=== PATIENT | male | born 1935 | race Caucasian/White ===

== ENCOUNTER → 2017-08-21 | Outpatient (CLI) | payer OTHER ==
[~2017-08-21] MED LIST: B2; CALCAVITD PO; CINNAMON; CIPR500 PO; CYAN500 PO; FINA5 PO; FLAX PO; FOLI400 PO; GINKGO BILOBA; HYDACE5 PO; LEVFLO500 PO; LOVA40 PO; MULVITMINF PO; NAPR500 PO; Naprosyn375 MG PO; Norco 5-325 Ta1 EACH PO; OAT BRAN; OMEG1CAP30 PO; POLY500 PO; PYRI100 PO; SERT50 PO; SLO-NIACIN; SULTRIDS PO; TAMS.4ER PO
== END | disposition home or self-care (01) ==
LOC: LAB SHORT 09:30 → OLS 09:30
PROVIDERS: Urology
DX: C61 Malignant neoplasm of prostate (principal)
CPT/HCPCS: 36415; 84153

== ENCOUNTER → 2017-08-21 | Outpatient (CLI) | payer OTHER | END | disposition home or self-care (01) | LOC: PLD 14:19 → LAB SHORT 14:19 | DX: Z08 Encounter for follow-up examination after completed treatment for malignant neoplasm (principal); Z85.51 Personal history of malignant neoplasm of bladder | CPT/HCPCS: 88108 ==

== ENCOUNTER → 2018-01-01 | Outpatient (CLI) | payer OTHER | LOC: LAB SHORT 07:42 → PLD 07:42 | DX: D22.62 Melanocytic nevi of left upper limb, including shoulder (principal) | CPT/HCPCS: 88305 ==

== ENCOUNTER 2019-01-12 23:33 | Emergency (ER) | payer OTHER ==
[~2019-01-12] VITALS: Ht 180.3 cm; Wt 84.4 kg
[2019-01-13 00:18] LABS: BASOPHILS ABSOLUTE AUTO 0.03 K/mm3 (0.00-0.23); BASOPHILS PERCENT AUTO 1 % (0-2); EOSINOPHILS ABSOLUTE AUTO 0.02 K/mm3 (0.00-0.68); EOSINOPHILS PERCENT AUTO 0 % (0-6); Hematocrit 35.8 % (37.0-53.0); Hemoglobin 11.6 g/dL (13.5-17.5); IMMATURE GRAN ABSOLUTE AUTO 0.02 K/mm3 (0.00-0.10); IMMATURE GRAN PERCENT AUTO 0 % (0-1); LYMPHOCYTES ABSOLUTE AUTO 1.13 K/mm3 (0.84-5.20); LYMPHOCYTES PERCENT AUTO 24 % (21-46); MONOCYTES ABSOLUTE AUTO 0.54 K/mm3 (0.16-1.47); MONOCYTES PERCENT AUTO 12 % (4-13); Mean Corpuscular HGB 31.3 pg (26.0-34.0); Mean Corpuscular HGB Conc 32.4 g/dL (31.5-36.5); Mean Corpuscular Volume 97 fL (80-100); Mean Platelet Volume 11.6 fL (9.1-12.4); NEUTROPHILS ABSOLUTE AUTO 2.93 K/mm3 (1.96-9.15); NEUTROPHILS PERCENT AUTO 63 % (41-73); Platelet Count 140 K/mm3 (150-400); RDW Coefficient Variation 12.9 % (11.7-14.2); RDW Standard Deviation 45.8 fL (35.1-46.3); Red Blood Cell Count 3.71 M/mm3 (4.30-5.90); White Blood Cell Count 4.67 K/mm3 (4.00-11.30)
[2019-01-13 00:34] LABS: Albumin, Blood 3.3 g/dL (3.4-5.0); Albumin/Globulin Ratio 0.9 (0.8-1.8); Bilirubin, Total 0.6 mg/dL (0.1-1.0); Bun/Creatinine Ratio 15.2 (12.0-20.0); Calcium, Blood 8.6 mg/dL (8.5-10.1); Creatinine, Blood 1.25 mg/dL (0.60-1.20); Globulin, Blood 3.8 g/dL (2.2-4.0); Potassium, Blood 3.9 mmol/L (3.5-5.5); Total Protein, Blood 7.1 g/dL (6.4-8.2)
[2019-01-13 00:59] LABS: Source, Urine Clean Catch
[2019-01-13 01:01] LABS: Bilirubin, Urine Neg (Neg); Blood, Urine Neg (Neg); Glucose Qualitative, Urine Neg (Neg); Ketones, Urine Neg (Neg); Leukocyte Esterase, Urine 1+ (Neg); Nitrite, Urine Neg (Neg); Protein, Urine 2+ (Neg); Specific Gravity, Urine 1.015 (1.003-1.022); Urobilinogen, Urine NORM (Normal)
[2019-01-13 01:02] LABS: Appearance, Urine Clear (Clear); Color, Urine Amber (P-Yellow)
[2019-01-13 01:07] LABS: Amorphous Light (0-Heavy); Bacteria Few /hpf; Mucus Light (0-Heavy); Red Blood Cells, Urine Not Seen /hpf (0-2); Squamous Epithelial Cells Not Seen /hpf (Few); White Blood Cells, Urine 0-2 /hpf (0-5)
== END 2019-01-13 01:48 | disposition home or self-care (01) ==
LOC: ER 23:33
PROVIDERS: Emergency Medicine
DX: E86.0 Dehydration (principal); R19.7 Diarrhea, unspecified; R50.9 Fever, unspecified; Z79.899 Other long term (current) drug therapy; Z85.51 Personal history of malignant neoplasm of bladder
CPT/HCPCS: 36415; 71046; 80053; 81001; 83605; 83690; 83735; 83880; 84145; 84484; 85025; 93005; 93010; J7030

== ENCOUNTER 2019-03-28 18:03 | Inpatient (IN) | payer OTHER ==
[~2019-03-28] VITALS: Ht 180.3 cm; Wt 79.1 kg
[2019-03-28 18:52] LABS: BASOPHILS ABSOLUTE AUTO 0.03 K/mm3 (0.00-0.23); BASOPHILS PERCENT AUTO 0 % (0-2); EOSINOPHILS ABSOLUTE AUTO 0.13 K/mm3 (0.00-0.68); EOSINOPHILS PERCENT AUTO 2 % (0-6); Hematocrit 33.4 % (37.0-53.0); Hemoglobin 11.2 g/dL (13.5-17.5); IMMATURE GRAN ABSOLUTE AUTO 0.01 K/mm3 (0.00-0.10); IMMATURE GRAN PERCENT AUTO 0 % (0-1); LYMPHOCYTES ABSOLUTE AUTO 1.89 K/mm3 (0.84-5.20); LYMPHOCYTES PERCENT AUTO 26 % (21-46); MONOCYTES ABSOLUTE AUTO 0.67 K/mm3 (0.16-1.47); MONOCYTES PERCENT AUTO 9 % (4-13); Mean Corpuscular HGB 31.2 pg (26.0-34.0); Mean Corpuscular HGB Conc 33.5 g/dL (31.5-36.5); Mean Corpuscular Volume 93 fL (80-100); Mean Platelet Volume 10.6 fL (9.1-12.4); NEUTROPHILS ABSOLUTE AUTO 4.58 K/mm3 (1.96-9.15); NEUTROPHILS PERCENT AUTO 63 % (41-73); Platelet Count 214 K/mm3 (150-400); RDW Coefficient Variation 12.3 % (11.7-14.2); RDW Standard Deviation 42.6 fL (35.1-46.3); Red Blood Cell Count 3.59 M/mm3 (4.30-5.90); White Blood Cell Count 7.31 K/mm3 (4.00-11.30)
[2019-03-28 19:25] LABS: Source, Urine Voided
[2019-03-28 19:27] LABS: Bilirubin, Urine Neg (Neg); Blood, Urine Neg (Neg); Glucose Qualitative, Urine Neg (Neg); Ketones, Urine Neg (Neg); Leukocyte Esterase, Urine Neg (Neg); Nitrite, Urine Neg (Neg); Protein, Urine Neg (Neg); Urobilinogen, Urine NORM (Normal); pH, Urine 6.5 (5.0-8.0)
[2019-03-28] MEDS ORDERED: CALCIUM PO (19:28)
[2019-03-28] MEDS ORDERED: FOLI400 PO (19:28)
[2019-03-28] MEDS ORDERED: ZINC220 PO (19:28)
[2019-03-28] MEDS ORDERED: CYAN500 PO (19:30)
[2019-03-28] MEDS ORDERED: IRON PO (19:30)
[2019-03-28] MEDS ORDERED: VITB2 PO (19:30)
[2019-03-28] MEDS ORDERED: PYRI100 PO (19:30)
[2019-03-28] MEDS ORDERED: Complete Multi1 EAC1 PO (19:31)
[2019-03-28] MEDS ORDERED: Sleep Aid25 M1 PO (19:31)
[2019-03-28] MEDS ORDERED: MAGNESIUM400 MG PO (19:31)
[2019-03-28] MEDS ORDERED: ACET500 PO (19:32)
[2019-03-28] MEDS ORDERED: FISH FLAX BORAGE OIL PO (19:34)
[2019-03-28 19:37] LABS: Appearance, Urine Clear (Clear); Color, Urine Pale Yellow (P-Yellow)
[2019-03-28 20:58] LABS: Alanine Aminotransfer (ALT/SGP 32 U/L (12-78); Albumin, Blood 3.2 g/dL (3.4-5.0); Albumin/Globulin Ratio 0.7 (0.8-1.8); Alk Phos 82 U/L (50-136); Anion Gap 7 mmol/L (6-16); Aspartate Aminotrans (AST/SGOT 23 U/L (12-37); Bilirubin, Total 0.6 mg/dL (0.1-1.0); Blood Urea Nitrogen 16 mg/dL (8-24); Bun/Creatinine Ratio 18.3 (12.0-20.0); CO2, Blood 27 mmol/L (21-32); Calcium, Blood 8.7 mg/dL (8.5-10.1); Chloride, Blood 97 mmol/L (98-108); Creatinine, Blood 0.87 mg/dL (0.60-1.20); Globulin, Blood 4.3 g/dL (2.2-4.0); Glomerular Filtration Rate >60 (60-); Glucose, Blood 130 mg/dL (70-99); Potassium, Blood 4.1 mmol/L (3.5-5.5); Sodium, Blood 131 mmol/L (136-145); Total Protein, Blood 7.5 g/dL (6.4-8.2)
[2019-03-29 04:39] LABS: Hematocrit 34.3 % (37.0-53.0); Hemoglobin 11.6 g/dL (13.5-17.5); Mean Corpuscular HGB 30.2 pg (26.0-34.0); Mean Corpuscular HGB Conc 33.8 g/dL (31.5-36.5); Mean Platelet Volume 10.5 fL (9.1-12.4); Platelet Count 204 K/mm3 (150-400); RDW Coefficient Variation 12.2 % (11.7-14.2); RDW Standard Deviation 39.8 fL (35.1-46.3); Red Blood Cell Count 3.84 M/mm3 (4.30-5.90); White Blood Cell Count 5.21 K/mm3 (4.00-11.30)
[2019-03-29 04:40] LABS: Mean Corpuscular Volume 89 fL (80-100)
[2019-03-29 04:59] LABS: Alanine Aminotransfer (ALT/SGP 29 U/L (12-78); Albumin, Blood 3.1 g/dL (3.4-5.0); Albumin/Globulin Ratio 0.7 (0.8-1.8); Alk Phos 83 U/L (50-136); Anion Gap 8 mmol/L (6-16); Aspartate Aminotrans (AST/SGOT 27 U/L (12-37); Bilirubin, Total 0.5 mg/dL (0.1-1.0); Blood Urea Nitrogen 18 mg/dL (8-24); Bun/Creatinine Ratio 23.7 (12.0-20.0); CO2, Blood 24 mmol/L (21-32); Chloride, Blood 100 mmol/L (98-108); Creatinine, Blood 0.76 mg/dL (0.60-1.20); Globulin, Blood 4.4 g/dL (2.2-4.0); Glomerular Filtration Rate >60 (60-); Glucose, Blood 144 mg/dL (70-99); Potassium, Blood 4.4 mmol/L (3.5-5.5); Sodium, Blood 132 mmol/L (136-145); Total Protein, Blood 7.5 g/dL (6.4-8.2)
--- NOTE | 2019-03-29 06:32 | NUR ---
in from ER, in room, short term memory loss, sioux, saline locked, room air, consults called, MRI form filled out and faxed, no major medical changes noted during the shift, call light in reach, bed in low position, will contine to monitor and treat until share bsr with day staff
--- NOTE | 2019-03-29 11:17 | NUR ---
Family met with physician and decided on hospice care. they requested CT scan be cancelled. Sent family on break and will speak with them on hospice plan.
--- NOTE | 2019-03-29 13:28 | NUR ---
Met with . She is very fatigued and has not eaten any food. She had many questions about hospice. We reviewed Dr Stacy's reccomendations and information and discussed input from Dr. Ware. states expressed he would not want more invasive treatment. They reviewed with his chaildren and they argree comfort and a natural progression of life is best. They live in a small mobile home has experience with working [employer]. They will need a hospital bed in living room and possibly other equipment. The has seen hospice in her work. Reviewed her fears of giving him medications. She will need reenforcement and support. will notify hospice and continue to support family. Advised jenna will be busy to rest and spend time with family today she is tearfull and exhauseted. will update dr Ware.
--- NOTE | 2019-03-29 13:43 | NUR ---
review of medications and plan of care with hospitalist. faxed noted to [facility]
--- NOTE | 2019-03-29 16:49 | NUR ---
SHIFT SUMMARY- PT AXO X2-3. INTERMITTENT CONFUSION. PT DENIES PAIN. [facility]. DENIES SOB. RESP E/U ON RA. DENIES N/V. DR. FINN IN TO SEE PT TODAY. PALLIATIVE CARE IN TO SPEAK WITH PT AND PT'S FAMILY. PT MADE COMFORT CARE THIS SHIFT. AT BEDSIDE. NO OTHER SIGNIFICANT CHANGES THIS SHIFT.
--- NOTE | 2019-03-30 03:54 | NUR ---
SHIFT SUMMARY PT ADMITTED FOR METASTATIC BRAIN LESION WITH VASOGENIC EDEMA. DNR-CC. REGULAR DIET. MAY LEAVE OUT IV IF UNABLE TO RESTART. PT CURRENTLY HAS 20G IV TO L FA. HX OF BLADDER CANCER AND UNTREATED PROSTATE CANCER. TAKES MEDICATIONS WHOLE. PT IS INDEPENDENT IN ROOM WITH AT BEDSIDE AT ALL TIMES. THE PT PRESENTED WITH A HEADACHE AND CONFUSION. THE PT RECENTLY HAD A CT SCAN DUE TO SOME PRESISTEN ABDOMINAL PAIN, WHICH WAS SUSPECIOUS FOR LYMPHOMA AND WAS BEING SET UP TO SEE DR. LARIOS. THIS IS NOW NOTED LIKELY TO BE METASTATIC DISEASE VERSUS LYMPHOMA. THE PT HAD A PET SCAN, WHICH SHOWED A 1.8CM SUSPECIOUS LESION IN THE L TEMPORAL LOBE WITH SOME VASOGENIC EDEMA. IT IS ASSUMED THAT THIS LESION IS METASTATIC PER REPORT. THE PT HAS BEEN UP AND AROUND IN ROOM AND BECOMING INCREASEINGLY CONFUSED AND FORGETFUL THE NIGHT PERSISTS. THE PTS WAS UNABLE TO GET PT TO GET BACK INTO BED DUE TO PT NOT KNOWING WHERE HE WAS AND NOT BEING DIRECTABLE. [facility] ARCHITECT ABLE TO GET PT BACK INTO BED. PTS DID ASK NOT TO BE DISTURBED MUCH POSSIBLE THROUGHOUT THE NIGHT. ATTEMPTED TO ACCOMODATE MUCH POSSIBLE. THE PT APPEARS TO BE SLEEPING AT THIS TIME WITH NO APPARENT SIGNS OF ACUTE DISTRESS. ASSESSMENTS Q2HRS PER CC.
--- NOTE | 2019-03-30 17:19 | NUR ---
pt comfortable many visitors fro their hoahaoism. pt family would like to take him home tomorrow. They have decided to use [facility] and notified staff of change.
--- NOTE | 2019-03-30 17:57 | NUR ---
SHIFT SUMMARY- PT AXO X2. PT DENIES PAIN. DENIES SOB. RESP E/U ON RA. DENIES N/V. AT BEDSIDE. FAMILY IN TO VISIT THIS AFTERNOON. PT'S IS REQUESTING [facility]. SHE HAD PREVIOUSLY CHOSEN [facility] AND IS REQUESTING TO SWITCH. DISCHARGE PLANNING IS NOT HERE TODAY. NOTIFIED CHARGE NURSES, ROBERT AND ELAYNE. PALLIATIVE CARE IN TO SEE PT AND SPOUSE THIS PM. NO OTHER SIGNIFICANT CHANGES THIS SHIFT.
--- NOTE | 2019-03-31 04:15 | NUR ---
SHIFT SUMMARY NO APPARENT ACUTE CHANGES NOTED SO FAR THIS SHIFT. THE PT DOES APPEAR TO CONTINUE TO HAVE INTERMITTENT CONFUSION AND DID DEMONSTRATE SO DIFFICULTY WITH WORD SALAD THIS SHIFT. THE PT IS HAVE A DIFFICULT TIME EXPLAINING THOUGHT PROCESS AND USING WORDS THAT DO NOT APPEAR TO MAKES SENSE. FOR EXAMPLE, THE PT ASKED IF THE DOCTOR WAS GOING TO DO ANYTHING ABOUT THE OCEAN AND THE WAVES AND POINTED TO HIS HEAD. THE PATIENTS DID STATED THAT THEY WANT [facility] AND HAS A LOT OF QUESTIONS ABOUT WHAT HOSPICE SERVICES PROVIDE. THIS NURSE EDUCATED THE PAITENT REGARDING SERVICES AND ADVISED THAT ADDITIONAL TRAINING WOULD BE PROVIDED BY HOSPICE AGENCY. ALSO ADVISED IF ANY ADDITIONAL QUESTIONS THEN FURSTHER EDUCATION WOULD BE PROVIDED. THE PT AND CONTINUE TO ASK TO BE DISTRUBED LITTLE POSSIBLE. COMFORT CARE ASSESSMENTS Q 2 HOURS PER ORDERS.
[2019-03-31] MEDS ORDERED: PROM25 PO (13:53)
[2019-03-31] MEDS ORDERED: MORP20L PO (13:53)
--- NOTE | 2019-03-31 15:03 | NUR ---
REVIEW D'C WITH S.O. GIVEN HARD COPY RX AND AWARE HAS ONE RX AT [facility]. REVIEW MEDS. AWARE [facility] WILL START SUNDAY. GIVEN NUMBER FOR [facility]. ANSWER ALL QUESTIONS. IN W/C TO POV.
== END 2019-03-31 15:07 | disposition hospice, home (50) | DRG 54 ==
LOC: ER 18:03 → MEDS 19:37
PROVIDERS: Emergency Medicine; ADMIT Internal Medicine
DX: C79.31 Secondary malignant neoplasm of brain (principal); G93.6 Cerebral edema; G93.41 Metabolic encephalopathy; E87.1 Hypo-osmolality and hyponatremia; C67.9 Malignant neoplasm of bladder, unspecified; C61 Malignant neoplasm of prostate; R59.1 Generalized enlarged lymph nodes; G25.81 Restless legs syndrome; E78.00 Pure hypercholesterolemia, unspecified; F32.9 Major depressive disorder, single episode, unspecified; G47.30 Sleep apnea, unspecified; Z51.5 Encounter for palliative care; Z66 Do not resuscitate; Z79.899 Other long term (current) drug therapy
CPT/HCPCS: 36415; 80053; 81003; 85025; 85027; 96374; 99284-25; A9270; J1100; J1650